=== PATIENT | male | born 1950 | race African-American/Black ===

== ENCOUNTER → 2017-03-26 | Outpatient (CLI) | payer BC ==
[2015-03-05 01:19] VITALS: BP 143/95
[~2017-03-26] MED LIST: ALLO300T PO; ASPI-630 PO; LOSA100T6 PO
--- NOTE | 2017-03-26 10:10 | RAD ---
DATE: 03/26/2017 EXAM: DIGITAL DIAGNOSTIC BILATERAL, BREAST BILATERAL HISTORY: Right breast lump COMPARISON: None available This study was interpreted with the benefit of Computerized Aided Detection (CAD). The breast parenchyma on the right is heterogeneously dense, which could reduce sensitivity of mammography. Breast parenchyma level C. FINDINGS: The breasts are asymmetric. There are heterogeneous fibroglandular shadows in the retroareolar region of the right breast. The area of palpable concern on the right was marked on the skin surface with a radiopaque marker. There are underlying heterogeneous fibroglandular type shadows at this level without evidence of a discrete mass. The appearance is most compatible with unilateral gynecomastia. There are only minimal densities in the retroareolar region on the left. Several benign type calcifications are noted bilaterally. No suspicious microcalcifications are evident. Right breast ultrasound, 03/26/2017: A targeted ultrasound exam of the retroareolar region of the right breast was performed. There is a flame shaped area of decreased echogenicity in the retroareolar region. It is fairly symmetric. The appearance is compatible with gynecomastia. No discrete mass is seen. IMPRESSION: Breast asymmetry compatible with unilateral left gynecomastia. Clinical surveillance is suggested. BI-RADS CATEGORY: 2 BENIGN FINDING(S) RECOMMENDED FOLLOW-UP: CLIN FOLLOW UP IMAGING CLINICALLY INDICATED PQRS compliance statement: Patient information was entered into a reminder system with a target due date for the next mammogram. Mammography is a sensitive method for finding small breast cancers, but it does not detect them all and is not a substitute for careful clinical examination. A negative mammogram does not negate a clinically suspicious finding and should not result in delay in biopsying a clinically suspicious abnormality. "Our facility is accredited by the [employer] Mammography Program."
== END | disposition home or self-care (01) ==
LOC: MAMMO 09:27
PROVIDERS: ATTEND Family Medicine
DX: N63 Unspecified lump in breast (principal)
CPT/HCPCS: 76641; G0204; 77066

== ENCOUNTER → 2017-07-17 | Outpatient (CLI) | payer BC ==
[2017-07-04 11:35] VITALS: BP 140/74
== END | disposition home or self-care (01) ==
LOC: PMGWOUND 11:45
PROVIDERS: ATTEND Preventive Medicine Undersea and Hyperbaric Medicine
DX: L02.31 Cutaneous abscess of buttock (principal); M19.91 Primary osteoarthritis, unspecified site; I10 Essential (primary) hypertension; Z87.891 Personal history of nicotine dependence
CPT/HCPCS: 99213

== ENCOUNTER → 2017-07-19 | Outpatient (CLI) | payer BC ==
[2017-07-04 11:35] VITALS: BP 140/74
== END | disposition home or self-care (01) ==
LOC: PMGWOUND 13:49
PROVIDERS: ATTEND Preventive Medicine Undersea and Hyperbaric Medicine
DX: L02.31 Cutaneous abscess of buttock (principal); Z87.891 Personal history of nicotine dependence; I10 Essential (primary) hypertension; M19.90 Unspecified osteoarthritis, unspecified site
CPT/HCPCS: 99214

== ENCOUNTER → 2022-01-24 | Day surgery (SDC) | payer BC ==
[~2022-01-24] VITALS: Ht 182.9 cm; Wt 117.2 kg
[~2022-01-24] MED LIST changes: +IV RINGERS,LACTATED 1000ML 1,000 ML IV SCH; +LIDOCAINE 2% PF 5 ML VIAL. ONE; +LOSA100T14 PO; -LOSA100T6 PO; +PROPOFOL 10 MG/ML (20ML) VIAL. IV ONE
[2022-01-24 06:52] VITALS: BP 138/90
[2022-01-24 08:08] VITALS: BP 118/72
== END | disposition home or self-care (01) ==
LOC: ENDOS 06:16
PROVIDERS: ATTEND Internal Medicine Gastroenterology
DX: Z12.11 Encounter for screening for malignant neoplasm of colon (principal); K64.0 First degree hemorrhoids; K57.30 Diverticulosis of large intestine without perforation or abscess without bleeding; K63.5 Polyp of colon; K63.89 Other specified diseases of intestine; I10 Essential (primary) hypertension; M19.90 Unspecified osteoarthritis, unspecified site; M10.9 Gout, unspecified; Z79.82 Long term (current) use of aspirin; Z79.899 Other long term (current) drug therapy; Z98.890 Other specified postprocedural states; Z72.89 Other problems related to lifestyle
CPT/HCPCS: 45380; 88305; J2704